=== PATIENT | female | born 2000 | race Caucasian/White ===

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

== ENCOUNTER 2020-04-16 06:50 | Outpatient (CLI) | payer MEDICAID, SELFPAY ==
[2020-04-16 07:19] VITALS: BP 126/77; PULSE 100; TEMP 36.8
[2020-04-16 07:20] VITALS: BMI 33.5
[2020-04-16 07:21] VITALS: PULSE 103; O2SAT 98
[2020-04-16 07:26] VITALS: PULSE 88; O2SAT 98
[2020-04-16] MEDS: Acetaminophen 500 MG Tablet 1000 MG PO (07:58)
[2020-04-16] MEDS: proMETHazine 25 MG Tablet PO (07:58)
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
== END 2020-04-16 08:05 | disposition home or self-care (01) ==
LOC: WPOUT 06:55 → WP 06:56
PROVIDERS: PCP Internal Medicine; Referring Provider Obstetrics & Gynecology; Visit Provider Obstetrics & Gynecology
DX: O60.00 Preterm labor without delivery, unspecified trimester (principal); Z3A.00 Weeks of gestation of pregnancy not specified
CPT/HCPCS: 59025; 59050; 96372; 99218; 90686; G0378

== ENCOUNTER 2020-04-21 06:30 | Outpatient (CLI) | payer MEDICAID, SELFPAY ==
[2020-04-21 06:53] VITALS: BMI 32.5
[2020-04-21 06:59] VITALS: BP 124/71; PULSE 100; PULSE 103; TEMP 36.9; O2SAT 96; O2SAT 97
[2020-04-21 07:00] VITALS: BP 124/71; PULSE 104
--- NOTE | 2020-04-21 08:16 | US_ITS ---
STUDY: SECOND AND THIRD TRIMESTER OBSTETRICAL ULTRASOUND - LIMITED REASON FOR EXAM: Female, 19 years old GROWTH. PT FELL YESTERDAY PRIOR ULTRASOUND: None. TECHNIQUE: Transabdominal and Transvaginal TECHNICAL QUALITY: Adequate. FINDINGS: There is a single intrauterine fetus. The fetus is in a cephalic presentation. There is demonstrated cardiac activity with a heart rate of 131 bpm. There is a normal amniotic fluid volume. The largest amniotic fluid pocket measures 5.7 cm. The amniotic fluid index (CARMEN) is 12.9 cm. The placenta is anterior in location and is not low lying. There are Grade 1 placental changes. The cervix measures 3.5 cm in length. BIOMETRY: BPD: 7.31 cm: 29 weeks, 2 days HC: 27.2 cm: 29 weeks, 1 days AC: 25.1 cm: 29 weeks, 4 days FL: 5.2 cm: 27 weeks, 5 days Age by LMP: 29 weeks, 5 days. CARMITA by LMP: 07/02/2020. age by current US: 29 weeks, 0 days. CARMITA by current US: 07/07/2020. Estimated weight: 1305 grams, +/- 196 grams, 16 percentile. US/OB Limited With Biometrics IMPRESSION: Single live intrauterine gestation with a mean gestational age of 29 weeks. Electronically Signed: Adam Desai, at 10:44 EST , Service support ,
[2020-04-21 08:26] VITALS: TEMP 36.8
[2020-04-21 08:27] VITALS: BP 112/69; PULSE 96; TEMP 36.8
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
== END 2020-04-21 12:25 | disposition home or self-care (01) ==
LOC: WPOUT 06:38 → WP 06:39
PROVIDERS: PCP Internal Medicine; Referring Provider Obstetrics & Gynecology; Visit Provider Obstetrics & Gynecology
DX: O9A.213 Injury, poisoning and certain other consequences of external causes complicating pregnancy, third trimester (principal); W19.XXXA Unspecified fall, initial encounter; Z3A.29 29 weeks gestation of pregnancy; T14.90XA Injury, unspecified, initial encounter
CPT/HCPCS: 59025; 59050; 76816; 76817; 99218; G0378

== ENCOUNTER 2020-05-20 05:30 | Outpatient (CLI) | payer MEDICAID, SELFPAY ==
[2020-05-20 05:41] VITALS: TEMP 36.6; O2SAT 99
[2020-05-20 05:43] VITALS: BP 135/67; PULSE 105
[2020-05-20 05:46] VITALS: BMI 34.4
[2020-05-20 06:22] LABS: Mucous, Urine 0 SEEN /hpf (<or=2+)
[2020-05-20 06:27] LABS: Color, Urine Yellow (Yellow); Glucose, Dipstick Normal (Normal); Ketone-Dipstick 5 mg/dl (Negative); Leukocyte Esterase-Dipstick 500 /ul (Negative); Nitrite-Dipstick Negative (Negative); Occult Blood-Urine 10 /ul (Negative); Protein-Dipstick 30 mg/dl (Negative); Urine Bilirubin Dipstick Negative (Negative); Urine Clarity Sl. Cloudy (Clear); Urine Urobilinogen Normal (Normal)
[2020-05-20 06:33] LABS: Bacteria 3+ /hpf (None Seen); Transitional Epithelial - Ur 0-5 SEEN /hpf (0-5)
[2020-05-20 06:34] LABS: White Blood Cells 10-25 SEEN /hpf (0-5)
[2020-05-20 06:35] LABS: Red Blood Cells-Urine 0-5 SEEN /hpf (0-5); Squamous Epithelial Cells - UA 5-10 SEEN /hpf (5-10)
--- NOTE | 2020-05-20 06:39 | OB.TRI.HP_ITS ---
- Problem List (1) 33 weeks gestation of Status: Acute (2) Cramping affecting , antepartum Status: Acute History of Present Illness Date of Service: 05/20/20 Was patient seen by the physician?: Yes Reason For Visit: R/O LABOR Date of Service: 05/20/20 Final CARMITA: 07/02/20 Gestational age: 33 Weeks and 6 Days History of Present Illness: Patient is a at 33.6 weeks gestation that presents to triage with cramping. Denies any loss of fluid, vaginal bleeding or contractions. Positive movement. Reports feeling stomach cramps earlier this morning. Allergies No Known Allergies Allergy (Verified 05/20/20 05:46) Laboratory Studies: Laboratory Tests 05/20/20 Range/Units 06:00 Urine Color Yellow (Yellow) Urine Clarity Sl. Cloudy (Clear) Urine pH 6.0 (5.0 - 8.0) Ur Specific [place] 1.020 (1.002-1.030) Urine Protein 30 H (Negative) mg/dl Urine Glucose (UA) Normal (Normal) mg/dl Urine Ketones 5 H (Negative) mg/dl Urine Occult Blood 10 H (Negative) /ul Urine Nitrite Negative (Negative) Urine Bilirubin Negative (Negative) mg/dL Urine Urobilinogen Normal (Normal) mg/dl Ur Leukocyte Esterase 500 H (Negative) /ul Urine RBC 0-5 SEEN (0-5) /hpf Urine WBC 10-25 SEEN (0-5) /hpf Ur Squamous Epith Cells 5-10 SEEN (5-10) /hpf Ur Transition Epith Cell 0-5 SEEN (0-5) /hpf Urine Bacteria 3+ (None Seen) /hpf Urine Mucus 0 SEEN (<or=2+) /hpf Review of Systems Constitutional: Denies: Anorexia, Chills HEENT: Denies: Head Aches, Sinus Congestion, Sinus Drainage Cardiovascular: Denies: Chest Pain, Palpitations Respiratory: Denies: Cough, Shortness of breath at rest, Sputum production Gastrointestinal: Reports: Abdominal Pain - cramping Genitourinary: Reports: Frequency, Retention - Feels like she cannot empty bladder fully Skin: Denies: Rash, Wounds Neurological: Denies: Numbness, Tingling, Focal weakness Physical Exam Vitals: Vital Signs Temp Pulse BP Pulse Ox 97.9 F 105 H 135/67 H 99 05/20/20 05:41 05/20/20 05:43 05/20/20 05:43 05/20/20 05:41 General: Alert, Oriented x3, No apparent distress HEENT: Atraumatic Cardiovascular: Regular rate Lungs: Normal air movement Abdomen: Soft, Non Tender, Gravid Neurological: Cranial nerves II-XII grossly intact NST - FHR Rate Baby A Baseline: 140 Variability:: Moderate Accelerations:: 15 x 15 Decelerations:: None NST Reactive:: Yes Uterine Activity:: None noted via TOCO or palpation Impression/Plan at 33.6 weeks gestation that presents for cramping starting this morning. NST reactive Afebrile UA - positive bacteria, leukocyte esterase (high), ketones, protein and blood Sent urine for culture RX sent for Macrobid 100 mg BID x 7 days Patient encouraged to increase fluid intake She has appointment in office next week Discharge home
== END 2020-05-20 06:55 | disposition home or self-care (01) ==
LOC: WPOUT 05:35 → WP 05:36
PROVIDERS: PCP Internal Medicine; Referring Provider Advanced Practice Midwife; Visit Provider Advanced Practice Midwife
DX: O26.893 Other specified pregnancy related conditions, third trimester (principal); R10.9 Unspecified abdominal pain; Z3A.33 33 weeks gestation of pregnancy
CPT/HCPCS: 59025; 59050; 81001; 87086; 87088; 99218; G0378

== ENCOUNTER 2020-06-30 23:59 | Inpatient (IN) | payer MEDICAID, SELFPAY ==
[2020-06-30 23:33] VITALS: TEMP 37.4
[2020-06-30 23:34] VITALS: O2SAT 98
[2020-06-30 23:35] VITALS: BP 120/83; PULSE 96
[2020-06-30 23:43] VITALS: BP 120/83; PULSE 99; TEMP 37.4; O2SAT 96
[2020-06-30 23:45] VITALS: BMI 35.8
[2020-07-01] VITALS (58 sets, daily range): BP systolic 97–145; BP diastolic 52–95; PULSE 88–132; RESP 16; TEMP 35.9–37.7; O2SAT 97–100
[2020-07-01 00:01] LABS: ROM Internal Control Test YES-OK TO RESULT pt. (Internal QC); ROM Patient Test POSITIVE (Negative)
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
[2020-07-01] MEDS: Lactated Ringers 500 ML 999 ML IV (01:15)
[2020-07-01 01:34] LABS: Absolute Lymphocyte Count 0.74 X10^3/uL (0.83-4.51); Absolute Neutrophil Count 6.4 X10^3/uL (2.0-7.7); Basophil# 0.02 X10^3/uL; Basophil% 0.3 % (0-1); Eosinophil# 0.02 X10^3/uL; Eosinophils% 0.3 % (0-5); Hematocrit 38.2 % (37-47); Hemoglobin 12.7 g/dL (12.0-15.0); Lymphocyte # 0.74 X10^3/ul (4.0); Lymphocyte % 9.4 % (19-41); Mean Corp Hgb Conc 33.2 g/dL (32-36); Mean Corpuscular Hgb 30.8 pg (27.0-32.0); Mean Corpuscular Volume 92.7 fL (81-99); Mean Platelet Vol. 10.9 fl (6.2-12.0); Monocyte% 7.6 % (0-10); NRBC Flagged by Analyzer 0 % (0-5); Neutrophil # 6.43 X10^3/uL (2.7-7.7); Neutrophil % 81.8 % (47-70); Platelet Count 170 K/mm3 (150-450); RBC Distribution Width CV 13.1 % (11.6-14.6); RBC Distribution Width SD 44.8 fl (35.1-43.9); Red Blood Count 4.12 M/mm3 (4.2-5.4); White Blood Count 7.9 K/mm3 (4.4-11.0)
[2020-07-01] MEDS: Lactated Ringers 1,000 ML 50 ML IV (01:49)
[2020-07-01 02:06] LABS: Color, Urine Yellow (Yellow); Glucose, Dipstick Normal (Normal); Ketone-Dipstick Negative (Negative); Leukocyte Esterase-Dipstick 25 /ul (Negative); Mucous, Urine 0 SEEN /hpf (<or=2+); Nitrite-Dipstick Negative (Negative); Occult Blood-Urine 250 /ul (Negative); Protein-Dipstick Negative (Negative); Urine Bilirubin Dipstick Negative (Negative); Urine Clarity Clear (Clear); Urine Urobilinogen Normal (Normal); Urine pH 6.5 (5.0 - 8.0)
[2020-07-01 02:16] LABS: Bacteria 1+ /hpf (None Seen); Red Blood Cells-Urine 0-5 SEEN /hpf (0-5); Squamous Epithelial Cells - UA 0-5 SEEN /hpf (5-10); White Blood Cells 10-25 SEEN /hpf (0-5)
[2020-07-01 03:47] LABS: Chlamydia Trachomatis by PCR Negative (Negative); Neisserai gonorrhoeae by PCR Negative (Negative); Probe Check PASS; Sample Adequacy Control PASS; Specimen Processing Control PASS
[2020-07-01] MEDS: fentaNYL-bupivacaine (epidural) 100 ML BAG EPIDURAL ×2 (04:14→09:57)
[2020-07-01] MEDS: Mag Hydrox/Al Hydrox/Simeth 30 ML UDC PO (05:29)
[2020-07-01] MEDS: Oxytocin 30 units/NS 500 ml 30 UNITS/500 ML IV.SOLN IV (05:45)
[2020-07-01] MEDS: Lactated Ringers 1,000 ML 200 ML IV (07:20)
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
[2020-07-01 09:17] LABS: Rubella IgG Reactive (Nonreactive); Syphilis Antibodies Non-reactive
[2020-07-01 09:36] LABS: HIV - WCH Non-Reactive (Nonreactive); Hepatitis B Surface Antigen Non-Reactive (Nonreactive); Hepatitis C Antibody Non-Reactive (Nonreactive)
[2020-07-01] MEDS: Oxytocin 30 units/NS 500 ml 30 UNITS/500 ML IV.SOLN 334 UNITS IV (10:17)
--- NOTE | 2020-07-01 10:40 | PCM.OPRPT ---
Problem List (1) Vaginal delivery Status: Acute (2) Periurethral laceration, delivered, current hospitalization Status: Acute Vaginal Delivery Maternal Presentation: Spontaneous Rupture of Membranes Amniotic Membrane Rupture Type: Spontaneous at home Amniotic Fluid Description: Clear, Cloudy Final CARMITA: 07/02/20 Final CARMITA Source: US <20 weeks Gestational age: 39 Weeks and 6 Days Date of Procedure: 07/01/20 Pre-Operative Diagnosis: SROM Post-Operative Diagnosis: Surgery/ Procedure Performed: Spontaneous Vaginal Delivery Type of Anesthesia: Epidural Description of Procedure: Progressed to complete with strong urge to push. of viable female infant over periurethral laceration. APGARS 9, 9. Infant head delivered with body forthcoming. Baby rotated from direct OA to ROP, loose cord around, delivered through. Infant placed on maternal abdomen, strong cry, mouth and nares suctioned for secretions. Pitocin started for active 3rd stage management. Placenta delivered intact, 3 vessel cord, via rod. Perineum inspected and revealed periurethral laceration, repaired with 3.0 vicryl rapide. Tissue friable with small amount of bleeding, decision to apply pressure, hemostasis achieved at this time. Vaginal sweep completed by me, fundus firm. 300ml EBL. Sponge and instrument count done by me. Mom and baby stable, family bonding well. Planning to breastfeed. notified. Presentation: Vertex, ROP Placental Delivery Description: Spontaneous Placenta Disposition: [facility] Cord Vessel Description: 3 Vessels Nuchal Cord Compression: Without compression Cord Entanglement: Around neck x 1, loose Estimated Blood Loss: 300 ml A gender: Female Episiotomy Description: None Laceration: Periurethral Extnsion/lac, 1st degree Medications given after delivery: IV Pitocin Complications: None
[2020-07-01] MEDS: Acetaminophen 500 MG Tablet PO (11:34)
[2020-07-01] MEDS: Ibuprofen 600 MG Tablet PO (19:50)
[2020-07-02 00:13] VITALS: BP 106/54; PULSE 80; RESP 16; TEMP 36.2
[2020-07-02 04:15] VITALS: BP 130/81; PULSE 94; RESP 16; TEMP 36.4
[2020-07-02 07:14] LABS: Hematocrit 34.8 % (37-47); Hemoglobin 11.7 g/dL (12.0-15.0); Mean Corp Hgb Conc 33.6 g/dL (32-36); Mean Corpuscular Hgb 31.3 pg (27.0-32.0); Mean Platelet Vol. 10.4 fl (6.2-12.0); Platelet Count 171 K/mm3 (150-450); RBC Distribution Width CV 13.4 % (11.6-14.6); RBC Distribution Width SD 45.7 fl (35.1-43.9); Red Blood Count 3.74 M/mm3 (4.2-5.4); White Blood Count 8.9 K/mm3 (4.4-11.0)
[2020-07-02 07:50] VITALS: BP 135/72; PULSE 92; RESP 16; TEMP 36.6
--- NOTE | 2020-07-02 09:45 | PCM.PN.OB ---
Patient Problems: Active and Suspected Problems 39 weeks gestation of (Acute) Amniotic fluid leaking (Acute) Poor patient attendance of care (Acute) Vaginal delivery (Acute) Periurethral laceration, delivered, current hospitalization (Acute) Subjective: Patient seen at bedside. Feeling good. Ambulating and voiding without difficulty. with support. Denies any pain. Desires discharge home. - Physical Exam Vitals/I&O's: Vital Signs Temp Pulse Resp BP Pulse Ox 98 F 92 16 135/72 H 98 07/02/20 07:50 07/02/20 07:50 07/02/20 07:50 07/02/20 07:50 07/01/20 15:40 Oxygen Delivery Method Room Air Weight: 196 lb Body Mass Index (BMI) 35.8 Intake and Output for Last 24 Hours 06/30/20 07/01/20 07/02/20 23:59 23:59 23:59 Intake Total 3874.91 / 3874.91 Output Total 1550 / 1550 Balance 2324.91 / 2324.91 General: Alert, Oriented x3 HEENT: Atraumatic Oral: Moist Mucosa Neck: Supple Lungs: Normal air movement Cardiovascular: Regular rate Abdomen: Soft, Non Tender Extremities: Capillary Refill Less than 3 Seconds, No Calf Tenderness Skin: No rashes Neurological: Cranial nerves II-XII grossly intact Microbiology Past 72 Hours 07/01/20 01:00 Mucosa - Nose SARS-CoV-2 Antigen (Rapid) - Final Laboratory Results 07/02/20 07:00: WBC 8.9, RBC 3.74 L, Hgb 11.7 L, Hct 34.8 L, MCV 93.0, MCH 31.3, MCHC 33.6, RDW Std Deviation 45.7 H, RDW Coeff of Agrima 13.4, Plt Count 171, MPV 10.4 Current Medications Acetaminophen (Acetaminophen 500 Mg Tablet) 1,000 mg PO Q8H PRN PRN PRN Reason: Pain Score 1-3 Bisacodyl (Bisacodyl 10 Mg Suppository) 10 mg RC UD PRN PRN Reason: If no BM Dibucaine (Dibucaine 30 Gm Tube) 1 applic TOPICAL TID PRN PRN; Protocol PRN Reason: Discomfort Hydrocortisone (Hydrocortisone 2.5% Crm) 1 applic TOPICAL TID PRN PRN; Protocol PRN Reason: Discomfort Ibuprofen (Ibuprofen 600 Mg Tablet) 600 mg PO Q6H PRN PRN PRN Reason: Pain Score 1-3 Last Admin: 07/01/20 19:50 Dose: 600 mg Documented by: Methylergonovine Maleate (Methylergonovine 0.2 Mg/Ml Ampul) 0.2 mg IM X1 PRN PRN Reason: Excess bleeding/uterine atony Ondansetron HCl (Ondansetron 4 Mg/2 Ml Vial) 4 mg IV Q4H PRN PRN PRN Reason: Nausea Senna/Docusate Sodium (Senna/Docusate Sodium 1 Tablet) 1 - 2 tablet PO DAILY PRN PRN PRN Reason: Constipation Simethicone (Simethicone 80 Mg Tablet) 80 mg PO PCHS PRN PRN Reason: Indigestion/Stomach pain Sodium Chloride (0.9% Saline Lock 10 Ml Syringe) 5 - 15 ml IV UD PRN PRN Reason: SALINE FLUSH Medical Necessity - Tobacco Use Smoking Status: Never smoker Assessment/Plan All Active Problems 29 weeks gestation of (Acute) Fall (Acute) Partner relational problem (Acute) 33 weeks gestation of (Acute) Cramping affecting , antepartum (Acute) 39 weeks gestation of (Acute) Amniotic fluid leaking (Acute) Poor patient attendance of care (Acute) Vaginal delivery (Acute) Periurethral laceration, delivered, current hospitalization (Acute) PPD #1 Routine care support Discharge home with follow up in office
--- NOTE | 2020-07-02 09:47 | DCINST_ITS ---
Discharge Diet: No Restrictions May resume sexual activity in: 6-8 weeks Additional Instructions: If you experience any of the following, contact your healthcare provider. * Bleeding that soaks a pad every hour for 2 hours * Fever 100.4 or higher * Unrelieved incision or abdominal pain * Swelling, redness, discharge or bleeding from your incision or episiotomy site * Your incision begins to separate * Problems urinating (including inability to urinate or burning while urinating). * Visual changes * Severe headache * Flu-like symptoms * Pain or redness in one of both of your breasts * Pain, warmth, tenderness or swelling in your legs, especially the calf area * Frequent nausea and vomiting * Symptoms of depression or anxiety If you experience any of the following, call 911 or go to the nearest Emergency Room. * Chest pain * Problems breathing * Seizure activity * Partial or complete paralysis of a body part, slurred speech, weakness or drooping of the face, or a sudden inability to walk or hold your balance Allergies/Adverse Reactions: Allergies No Known Allergies Allergy (Verified 06/30/20 23:46) Medications to take at Discharge Vit No.130/Iron/Folic [ Tablet] 1 ea PO DAILY 04/16/20 Please Follow Up With: Arabella Benavides CNM When: 2 weeks in office or virtual/ 6 weeks in office Primary Care Physician: Manjeet Sherwood MD [Primary Care Provider] - Test Results: Test results from this visit will be discussed in further detail at your follow- up appointment, if applicable. Proposed Discharge Date: 07/02/20
--- NOTE | 2020-07-02 09:47 | PCM.DCVAG ---
Discharge Diet: No Restrictions May resume sexual activity in: 6-8 weeks Additional Instructions: If you experience any of the following, contact your healthcare provider. Bleeding that soaks a pad every hour for 2 hours Fever 100.4 or higher Unrelieved incision or abdominal pain Swelling, redness, discharge or bleeding from your incision or episiotomy site Your incision begins to separate Problems urinating (including inability to urinate or burning while urinating). Visual changes Severe headache Flu-like symptoms Pain or redness in one of both of your breasts Pain, warmth, tenderness or swelling in your legs, especially the calf area Frequent nausea and vomiting Symptoms of depression or anxiety If you experience any of the following, call 911 or go to the nearest Emergency Room. Chest pain Problems breathing Seizure activity Partial or complete paralysis of a body part, slurred speech, weakness or drooping of the face, or a sudden inability to walk or hold your balance Allergies/Adverse Reactions: Allergies No Known Allergies Allergy (Verified 06/30/20 23:46) Medications to take at Discharge Vit No.130/Iron/Folic [ Tablet] 1 ea PO DAILY 04/16/20 Please Follow Up With: Arabella Benavides CNM When: 2 weeks in office or virtual/ 6 weeks in office Primary Care Physician: Manjeet Sherwood MD [Primary Care Provider] - Test Results: Test results from this visit will be discussed in further detail at your follow-up appointment, if applicable. Proposed Discharge Date: 07/02/20
[2020-07-02] MEDS: Ibuprofen 600 MG Tablet PO (11:58)
--- NOTE | 2020-07-02 12:30 | CASEMGMT ---
Social Work Assessment Labor and Delivery Unit Date of Referral: 07/01/20 Time of Referral: 13:15 Date of Intervention: 07/02/20 Time of Intervention: 12:30 Reason for Referral: Resources History obtained from: Medical records and mother of baby (MOB) Household composition: MOB and the father of baby (FOB) have just moved into the home of MOB's best friend Radha Bustillos. Have lived in this home for a month now. Patient's parent/guardian status: MOB is age 19 and the FOB is reported as Rich Miller, age 22; involved for 2 years. This will result in the first child for MOB and the second for the FOB. FOB has an almost 3-year-old who reportedly visits whenever FOB is able to get the child. Educational Status: 11th grade. MOB reports able to read, write, and understand what is read. Financial Status: MOB reports works at [employer]. FOB is employed with [employer] in [place]. Infant Supplies: Reports has all needs met for baby including crib, car seat, clothes, diapers, wipes, bottles, etc. Childcare/Caregiver(s): MOB reports will be main caregiver for baby girl, Guillermina Barron. Transportation: FOB assists with transportation needs. Programs/Agencies Involved: [facility], [place] (MOB reports will follow up on Saturday) Children Services/Legal Issues: No legal issues. Reports as a minor, starting at the age of 11 and then continuing and off there were children services issues due to MOB's parents fighting and FOB's drinking. First occurrence in [facility]. Behavioral Health Issues: Mental Health History: MOB and FOB deny any issues with depression or anxiety. Substance Use History: MOB and FOB deny any issues with substance use. Both deny any use of substances. Family History: MOB reports her father abuses alcohol and that all of MOB's siblings have used drugs. MOB's mother has diagnosis of Bipolar disorder and MOB reports her younger brother has emotional health issues, but is doing well in and out of institutions. Family/Social Stressors: MOB and FOB deny any current stressors. MOB and FOB excited about baby and looking forward to going home today. Support Systems: MOB reports good support from FOB and friends. Depression and Anxiety/Shaken Baby/Safe Sleeping: Reviewed and resources provided. ASSESSMENT: Met with MOB and FOB in room. MOB tending to baby?s needs upon entering room. Introduced role and reason for referral. MOB reports has all needs met for baby. Reviewed past notes and MOB had not had crib for baby and referral was made to [facility]. MOB and FOB report they have purchased a crib and deny any concerns. MOB denies any history of mental health. MOB reports good support from FOB and friends. Education provided on [facility]. MOB requests referral. TONYA [facility] has new phone number, . Discussed with nurse, Inna. Nurse reports no issues or concerns. Referral made to [facility]. PLAN: Home with resources provided. Referral to [facility] completed via on-line secured referral form. No other services requested or indicated. Jahaira Rojo, COLUMNIST, TAPPING MACHINE OPERATOR
[2020-07-02 12:57] VITALS: BP 126/75; PULSE 108; RESP 16; TEMP 36.1
== END 2020-07-02 13:39 | disposition home or self-care (01) | DRG 560 ==
LOC: WPOUT 07-01 00:04 → WP 07-01 00:04
PROVIDERS: Advanced Practice Midwife; Admitting Provider Advanced Practice Midwife; PCP Internal Medicine; Visit Provider Advanced Practice Midwife
DX: O71.82 Other specified trauma to perineum and vulva (principal); O69.81X0 Labor and delivery complicated by cord around neck, without compression, not applicable or unspecified; Z3A.39 39 weeks gestation of pregnancy; Z37.0 Single live birth
CPT/HCPCS: 59025; 59050; 81001; 84112; 85025; 85027; 86703; 86762; 86780; 86803; 86850; 86900; 86901; 87340; 87426; 87491; 87591; 99218; J7120; G0378

== ENCOUNTER 2022-12-21 07:15 | Inpatient (IN) | payer MEDICAID, SELFPAY ==
[2022-12-21] VITALS (63 sets, daily range): BP systolic 91–141; BP diastolic 53–89; PULSE 62–105; RESP 16; TEMP 36.2–36.9; O2SAT 97–100; BMI 35.4
[2022-12-21] MEDS: Lactated Ringers 1,000 ML 50 ML IV (08:00)
[2022-12-21] MEDS: LACTATED RINGERS 500 ML 999 ML IV (08:10)
[2022-12-21] MEDS: Mag Hydrox/Al Hydrox/Simeth 30 ML UDC PO (08:12)
[2022-12-21] MEDS: 0.9% Saline Lock 10 ML Syringe IV (08:12)
[2022-12-21] MEDS: Ondansetron 4 MG/2 ML Vial IV (08:12)
[2022-12-21] MEDS: Oxytocin 15 Units/NS 250ml 15 UNITS/250 ML IV.SOLN 2 UNITS IV (08:19)
[2022-12-21 08:26] LABS: Absolute Lymphocyte Count 1.17 X10^3/uL (0.83-4.51); Absolute Neutrophil Count 4.7 X10^3/uL (2.0-7.7); Basophil# 0.03 X10^3/uL; Basophil% 0.5 % (0-1); Eosinophil# 0.03 X10^3/uL; Eosinophils% 0.5 % (0-5); Hematocrit 35.9 % (37-47); Hemoglobin 11.4 g/dL (12.0-15.0); Lymphocyte # 1.17 X10^3/ul (0.83-4.51); Lymphocyte % 18.2 % (19-41); Mean Corp Hgb Conc 31.8 g/dL (32-36); Mean Corpuscular Hgb 28.8 pg (27.0-32.0); Mean Corpuscular Volume 90.7 fL (81-99); Monocyte# 0.44 X10^3/uL; Monocyte% 6.8 % (0-10); NRBC Flagged by Analyzer 0 % (0-5); Neutrophil # 4.73 X10^3/uL (2.7-7.7); Neutrophil % 73.4 % (47-70); Platelet Count 182 K/mm3 (150-450); RBC Distribution Width CV 12.6 % (11.6-14.6); RBC Distribution Width SD 41.7 fl (35.1-43.9); Red Blood Count 3.96 M/mm3 (4.2-5.4); White Blood Count 6.4 K/mm3 (4.4-11.0)
[2022-12-21 08:39] LABS: Bedside Glucose 91 mg/dL (74-106)
--- NOTE | 2022-12-21 08:44 | PCM.HP.OB ---
HPI - General General Date of Admission: 12/21/22 Date of Service: 12/21/22 Chief Complaint: induction HPI Narrative DEBORAH NIX, is a 22 F who presents for induction of labor due to poorly controlled gestational diabetes. has been complicated to date by gestational diabetes, and obesity in . Maternal Data Information Final CARMITA: 12/28/22 Gestational age: 39 0/7 PFSH PFSH Home Medications vits no.130-ferrous fum 27 mg iron-folic acid 800 mcg tablet 1 ea PO DAILY 04/16/20 [History Last Taken 12/20/22 21:00] Allergy/AdvReac Type Severity Reaction Status Date / Time No Known Allergies Allergy Verified 12/21/22 08:33 Social History Smoking Status: Never smoker History Elective abortions Hx Para 0 Spontaneous abortions Hx # Term Pregnancies Ectopic pregnancies Hx # Pregnancies Multiple births # of living children ROS Constitutional Constitutional: Denies fatigue, fever(s) or malaise Eyes Eyes: Denies change in vision ENT HEENT: Denies dizziness or headache(s) Cardiovascular Cardiovascular: Denies chest pain, dyspnea or lightheadedness Respiratory/Chest Respiratory/Chest: Denies cough or dyspnea Gastrointestinal Gastrointestinal: Denies change in bowel habits Genitourinary Genitourinary: Denies burning urination or genital lesions Integumentary Integumentary: Denies rash Neurologic Neurologic: Denies confusion, dizziness, headache(s), numbness or weakness Vital Signs Vital Signs Vital Signs: 12/21/22 08:08 12/21/22 08:08 12/21/22 08:05 Temperature 98.5 F Pulse Rate 105 H Blood Pressure 122/88 H BP Systolic 122 BP Diastolic 88 Physical Exam Const alert and no apparent distress General Appearance: cooperative HEENT normocephalic Resp normal respiratory effort Cardio regular rate GI soft to palpation GI Narrative: gravid, nontender, appropriate for gestational age Extremity no calf tenderness General Extremity: edema Skin no wounds Rashes: No rashes noted Psych activity/motor behavior normal Labs Labs Labs: Blood Type O POSITIVE Antibody Screen NEGATIVE Hct 35.9 % (37-47) L Hgb 11.4 g/dL (12.0-15.0) L Obstetrics US Syphilis Total Ab Non-reactive Rubella IgG Antibody Reactive (Nonreactive) Hep Bs Antigen Non-Reactive (Nonreactive) HIV 1&2 Antibody Non-Reactive (Nonreactive) Rhogam given: No Assessment & Plan (1) 39 weeks gestation of : PLAN: 22-year-old 2 para 1 at 39 weeks with gestational diabetes A1, however blood sugars were becoming poorly controlled. Recommended induction versus starting insulin. Patient elected for induction at 39 weeks. Risks benefits and alternatives were reviewed and patient's questions were answered to her satisfaction she desired to proceed. Pit and AROM induction. Estimated weight is less than 4500 g clinically and pelvis clinically adequate to expect vaginal delivery. May have routine pain control measures as needed.
[2022-12-21 09:40] LABS: Bedside Glucose 91 mg/dL (74-106)
[2022-12-21] MEDS: fentaNYL-bupivacaine (epidural) 100 ML BAG EPIDURAL (09:42)
[2022-12-21] MEDS: Sodium Citrate/Citric Acid 30 ML UDC PO (09:54)
[2022-12-21 10:22] LABS: Syphilis Antibodies Non-reactive
--- NOTE | 2022-12-21 13:54 | EX.PCM.OBRPT ---
Maternal Data Information Final CARMITA: 12/28/22 Gestational age: 39 0/7 Vaginal Delivery Maternal Presentation Maternal Presentation: Medically Indicated Induction Type of Induction: Pitocin and Amniotomy Operative Information Date of Procedure: 12/21/22 Pre-Operative Diagnosis: labor Post-Operative Diagnosis: same Surgery / Procedure Performed: Spontaneous Vaginal Delivery Type of Anesthesia: Epidural Special Medications: none Estimated Blood Loss: 200 Time of Delivery: 13:46 Findings Description of Procedure: A vigorous male infant was delivered MARIANNE over an intact perineum. A loose nuchal cord ?1 was easily reduced. The remainder the was delivered with maternal pushing and gentle traction only in less than 15 seconds. The Pitocin infusion was initiated for active management of the third stage. The cord was clamped and cut after cord pulsations ceased. The infant was attended to by the waiting nursing staff. The placenta was delivered spontaneously and intact. The cervix and vagina were intact. Sponge and needle counts were correct. A vaginal sweep was completed by me. Presentation: MARIANNE Amniotic Membrane Rupture Type: Artificial Amniotic Fluid Description: Clear Placental Delivery Description: Spontaneous Placenta Disposition: [facility] Cord Vessel Description: 3 Vessels Cord Entanglement: Around neck x 1, loose Nuchal Cord Compression: Without compression A Gender: Male (1 minute): 8 (5 minute): 9 Post Vaginal Delivery Medications Given After Delivery: IV Pitocin Episiotomy Description: None Laceration: None Complication Complications: None
[2022-12-21] MEDS: Oxytocin 15 Units/NS 250ml 15 UNITS/250 ML IV.SOLN 83 UNITS IV (14:19)
[2022-12-21 14:48] LABS: Bedside Glucose 71 mg/dL (74-106)
[2022-12-21 14:48] LABS: Bedside Glucose 77 mg/dL (74-106)
--- NOTE | 2022-12-21 16:41 | CASEMGMT ---
Social Work Labor and Delivery Sw informed of social work consult due to maternal history of family substance use. Sw presented to bedside and introduced self to MOB and FOB. Sw completed psychosocial assessment, provided eduation and support. MOB completed [place] Depression Scale. MOB and FOB receptive to sw involvement and information provided. Ok for MOB and baby to be discharged when medically ready. Sw to submit completed psychosocial assessment at later date. Eusebio Herman, RADIO SURVEY WORKER, PHLEBOTOMIST ASSOCIATE
[2022-12-21] MEDS: Acetaminophen 500 MG Tablet 1000 MG PO (19:05)
[2022-12-21] MEDS: Ibuprofen 600 MG Tablet PO (23:02)
[2022-12-22 00:41] VITALS: BP 108/55; PULSE 82; RESP 16; TEMP 36.1
[2022-12-22] MEDS: Acetaminophen 500 MG Tablet 1000 MG PO (01:33)
[2022-12-22 03:36] VITALS: BP 97/51; PULSE 78; RESP 16; TEMP 36.1
[2022-12-22 07:46] LABS: Bedside Glucose 91 mg/dL (74-106)
[2022-12-22 08:08] VITALS: BP 120/51; PULSE 74; RESP 16; TEMP 36.4
--- NOTE | 2022-12-22 09:50 | PCM.PN.BLA ---
Progress Note Pain well controlled, average lochia Physical Exam Const alert and no apparent distress Narrative: Fundus firm, below umbilicus. Assessment & Plan Assessment/Plan (1) (spontaneous vaginal delivery): PLAN: day #1 status post vaginal delivery. is breast-feeding and doing well. Patient is doing well and desires discharge home today
--- NOTE | 2022-12-22 09:51 | PCM.DC.SUM ---
Providers Date of Admission: 12/21/22 Primary Care Physician: Dr. Manjeet Sherwood MD Reason For Visit: VAGINAL DELIVERY Diagnosis Discharge Diagnosis (1) (spontaneous vaginal delivery): Status: Acute Code(s): O80 - Encounter for full-term uncomplicated delivery Plan: day #1 status post vaginal delivery. is breast-feeding and doing well. Patient is doing well and desires discharge home today Medications at Discharge Home Medications vits no.130-ferrous fum 27 mg iron-folic acid 800 mcg tablet 1 ea PO DAILY 04/16/20 Hospital Course Operations None Procedures None Summary of Care Provided Minutes Spent on Discharge: 14 Hospital Course: 22-year-old multigravida admitted for induction of labor due to poorly controlled gestational diabetes diet-controlled on 12/21/2022. Her induction went well and she had a spontaneous vaginal delivery without complications. Papi was breast-feeding and doing well. Patient was doing well. Ready for discharge home on day #1. Routine instructions and follow-up. Weight / BMI Weight Weight: 87.906 kg Body Mass Index (BMI) 35.4 ABG / Lab / Microbiology Data 12/21/22 08:00 Laboratory: Laboratory Results - last 24 hr 12/21/22 08:00: Syphilis Total Ab Non-reactive 12/21/22 13:38: POC Glucose 71 L 12/21/22 14:29: POC Glucose 77 12/22/22 07:26: POC Glucose 91 D/C Instructions May resume sexual activity in: 6 weeks Please Follow Up With: Saige Barrera MD When: Follow up with our office in 1-2 and 6 weeks or as needed. [phone]. Send a [employer] ([employer]) message to schedule your visits Meaningful Use Info Meaningful Use Diagnoses (Choose all that apply): None applicable Discharge Plan Admission Admit Date/Time: 12/21/22 07:15 Primary Reason for Your Visit: Vaginal delivery Attending Provider: Saige Barrera Primary Care Provider: Manjeet Sherwood Discharge Orders/Prescriptions Prescriptions: No Action vit no.[id number] 1 EACH tablet 1 ea PO DAILY Referrals / Follow Up: Manjeet Sherwood MD [Primary Care Provider] - Disposition Disposition (needs filled in before D/C Order can be placed): Home, Self Care
[2022-12-22 15:28] VITALS: BP 122/51; PULSE 74; RESP 16; TEMP 36.6
[2022-12-22] MEDS: SimETHICONE 80 MG Chewable Tablet PO (15:34)
[2022-12-22] MEDS: Senna/Docusate Sodium 1 Tablet PO (15:34)
[2022-12-22] MEDS: Ibuprofen 600 MG Tablet PO (15:34)
--- NOTE | 2022-12-26 15:23 | CASEMGMT ---
Social Work Assessment Labor and Delivery Unit Patient Address:[id number], [place] [id number] Phone number: [phone] Date of Referral: 12/21/22 Time of Referral:? 906 Referred By: Saige Barrera Date of Intervention: ??12/21/22 Time of Intervention:? 1129 Reason for Referral:? Family history of substance abuse Sw completed chart review and acknowledges social work consult due to maternal family history of substance abuse. Sw presented to bedside, introduced self to mother of baby (MOB- Leah) and father of baby (FOB- Rich). Sw explained reason for sw involvement at this time. Sw completed psychosocial assessment and provided resources. Sw asked FOB to step out of room momentarily so that MOB could complete [place] Depression Scale. When asked, FOB was respectful and did what was asked. History obtained from: medical records and mother of baby (MOB)?and FOB. Household composition: Currently residing in the family home is MELO CASTANEDA, their two year old daughter and now baby boy. Patient's parent/guardian status:? MOB states that she and FOB met at 09 of October [employer], and they have been together for 5 years. baby is their second baby together. Parents have a 3 year old at home, Guillermina. While meeting with TONYA privately, she denies issues or concerns of domestic violence or intimate partner violence. Medical History: TONYA is 2, para 1- now 2. TONYA received routine care during with [facility]. TONYA delivered baby boy via vaginal delivery at 39 weeks gestation. Baby boy, named Isac Hernandez, was born weighing 8lb 10oz and his apgars were 8 and 9 at one and five minutes of life, respectfully. Baby will be followed by Dr. Romero at [facility]. Educational Status: MOB states that she completed 11th grade and FOB graduated from high school. No college education. Financial Status: MOB is a stay at home mom, FOSabina works outside of the home at a car dealership. FOB states that he is able to take one week off of work now that baby has been born. Supplies:?MOB states that they have obtained all necessary baby items, including: car seat, safe sleep space, clothes, diapers, wipes and breast pump. Childcare/Caregiver(s):? TONYA is the primary caregiver to baby, along with FOB when he is not at work. Transportation:?? TONYA states that she has her drivers license and reliable transportation. No transportation barriers at this time. Programs/Agencies Involved: Family is connected to resources through [employer] including [employer] for insurance and WIC. ??? Children Services/Legal Issues: No former involvement with children services, no issues or concerns warranting referral to be made at this time. ??? Behavioral Health Issues: ??Mental Health History: TONYA has a mental health history positive for anxiety.. TONYA completed Asher Depression Scale, her score was a 7. Support and education provided. Sw explained to TONYA that she can be more susceptible to experiencing baby blues and/ or depression due to her mental health history. MOB expressed understanding. ?? Substance Use History:?TONYA denies substance use prior to or during . ? Family History:??TONYA states that her father is an alcoholic but she does not have a relationship with him at this time. ??? Drug Screens: No urine screens observed in chart review. Family/Social Stressors:?TONYA denies any stressors or concerns at this time. Support Systems: TONYA states that she has a lot of support found in her family, including her mom and FOB's sister and brother. Depression/Shaken Baby/Safe Sleeping:?Sw educated parents on signs and symptoms of baby blues and depression. Sw provided literature on symptoms to look for as well as appropriate coping skills to utilize should she struggle. MOB and FOSabina expressed understanding. Sw educated parents on shaken baby prevention and ABCs of safe sleep. Parents expressed understanding. ASSESSMENT:? Parents were engaged and interactive during psychosocial assessment. Parents have all necessary supplies needed for baby. Parents have supports in place and are aware of signs and symptoms of baby blues to be on the lookout for. PLAN:? MOB and baby discharged when medically ready. ?No other services requested or indicated. Eusebio Herman, EMERGENCY ROOM DOCTOR, ENLISTED AIRCREW/AERIAL OBSERVER/GUNNER
== END 2022-12-22 16:48 | disposition home or self-care (01) | DRG 560 ==
PROVIDERS: Admitting Provider Obstetrics & Gynecology; PCP Internal Medicine; Referring Provider Obstetrics & Gynecology; Visit Provider Obstetrics & Gynecology
DX: O24.410 Gestational diabetes mellitus in pregnancy, diet controlled (principal); Z37.0 Single live birth; O69.2XX0 Labor and delivery complicated by other cord entanglement, with compression, not applicable or unspecified; Z3A.39 39 weeks gestation of pregnancy
CPT/HCPCS: 59025; 59050; 82962; 85025; 86780; 86850; 86900; 86901; 99221; J7120; A4216; G0378; J2405